=== PATIENT | female | born 1975 | race Caucasian/White ===

== ENCOUNTER 2018-11-19 08:41 | Emergency (ER) | payer MEDICAID ==
[~2018-11-19] VITALS: Ht 182.9 cm; Wt 77.3 kg
[2018-11-19 08:49] VITALS: Ht 182.9 cm; Wt 77.3 kg
[2018-11-19] MEDS ORDERED: ADDERALL XR 2020 MG PO (08:51)
[2018-11-19] MEDS ORDERED: KLONOPIN0.5 MG PO (08:51)
[2018-11-19 09:37] LABS: BASOPHILS 0.2 % (0-2); EOSINOPHILS 0.8 % (0-7); HEMATOCRIT 40.6 % (36.0-48.0); HEMOGLOBIN 13.7 g/dL (12-16); IMMATURE GRANULOCYTES 0.4 % (0-5); LYMPHOCYTES 21.8 % (15-50); MCH 33.7 pg (26.0-34.0); MCHC 33.7 g/dL (31.0-37.0); MEAN PLATELET VOLUME 9.1 fL (7.4-10.4); MONOCYTES 7.9 % (2-11); NEUTROPHILS 68.9 % (40-80); PLATELET COUNT 260 10x3/uL (130-400); RBC 4.06 10x6/uL (4.00-5.40); RDW 12.7 % (11.5-14.5); WBC 10.1 10x3/uL (4.8-10.8)
[2018-11-19 09:57] LABS: HCG SERUM NEGATIVE (NEGATIVE)
[2018-11-19 10:02] LABS: ALBUMIN 3.7 g/dL (3.4-5.0); ANION GAP 9.8 mmol/L (8-16); BILIRUBIN - TOTAL 0.45 mg/dL (0.2-1.3); CALCIUM 8.4 mg/dL (8.5-10.1); CARBON DIOXIDE 28.2 mmol/L (21.0-32.0); CREATININE - SERUM 0.9 mg/dL (0.6-1.3); PROTEIN - SERUM 6.4 g/dL (6.4-8.2)
[2018-11-19] MEDS ORDERED: NAPROSYN500 MG PO (14:02)
[2018-11-19] MEDS ORDERED: HYDROCODON-ACE1 EAC7 PO (14:02)
[2018-11-19 15:47] VITALS: BP 135/75
== END 2018-11-19 15:49 | disposition home or self-care (01) ==
LOC: D.ER 08:41
PROVIDERS: Family Medicine
DX: S42.002A Fracture of unspecified part of left clavicle, initial encounter for closed fracture (principal); V43.52XA Car driver injured in collision with other type car in traffic accident, initial encounter; S09.90XA Unspecified injury of head, initial encounter; S81.011A Laceration without foreign body, right knee, initial encounter; S83.91XA Sprain of unspecified site of right knee, initial encounter